=== PATIENT | female | born 1945 | race Caucasian/White ===

== ENCOUNTER → 2016-06-13 08:42 | Day surgery (SDC) | payer MEDICARE, OTHER ==
[~2016-06-13 08:42] MED LIST: Acetaminophen TAB* 325 MG PO PRN; Buffered Lidocaine 1% SYR 3ML* 3 ML/SYR SYRINGE INTRADERM ONE; Cyclopentolate 1% OPTH.SOL* 2 ML BTL ONE; Flurbiprofen 0.03% OPTH.SOL* 2.5 ML BTL ONE; Lidocaine 1% MPF* 2 ML VIAL ONE; Midazolam* 1 MG/ML 2 ML VIAL (2 MG) ONE; Neomycin/Polymy/Dex OPHTH.OIN* 3.5 GM ONE; Phenylephrine 2.5% OPTH.SOL* 2 ML BTL ONE; Tetracaine 0.5% OPTH.SOL 4 ML* 1 DROP BTL ONE; Tropicamide 1% OPTH.SOL* BTL ONE
[2016-06-13 11:20] VITALS: BP 122/67
--- NOTE | 2016-06-14 15:09 | OP ---
DATE OF OPERATION: 06/13/16 [facility] DATE OF : 49 SURGEON: Dr. Oneal Salazar. CAFETERIA COOK: None. ANESTHESIOLOGIST: Ayush Whittaker DO ANESTHESIA: Topical with intravenous sedation. PRE-OP DIAGNOSIS: Cataract, left eye. POST-OP DIAGNOSIS: Cataract, left eye. OPERATIVE PROCEDURE: Phacoemulsification and cataract extraction with posterior chamber intraocular lens implant, left eye. COMPLICATIONS: None. BLOOD LOSS: None. DESCRIPTION OF PROCEDURE: The patient was brought to the operating room and received a small amount of intravenous sedation. A drop of Tetracaine was placed in her left eye. She was prepped and draped in the usual sterile fashion for ophthalmic surgery and attention was directed to the left eye where a speculum was placed. A paracentesis was created at the 5 o'clock position and 0.1 cc of 1 percent preservative-free Lidocaine was injected into the anterior chamber followed by DisCoVisc. The eye was digitally stabilized while a 2.75 mm keratome was used to create a triplanar clear corneal incision at the 3 o'clock position. A continuous curvilinear capsulorrhexis was created with a cystotome and Utrata forceps. BSS on a cannula was used to hydrodissect the lens from the capsule. Phacoemulsification was performed in a divide-and- conquer technique to create four fragments which were removed. Residual cortical material was removed with irrigation and aspiration. DisCoVisc was used to inflate the capsular bag and an SN60AT 17.5 diopter lens was folded and inserted into the capsular bag. DisCoVisc was removed using irrigation and aspiration. BSS on a cannula was used to hydrate the corneal stroma and seal the wound. At the end of the case the pupil was round and the lens was centered. The eye was of normal pressure and the wound was water tight. The speculum was removed and topical Maxitrol ointment was placed on the surface of the eye. The eye was closed, patched and shielded and the patient was sent to the recovery room in stable condition with post operative instructions and follow-up appointment given. [id number] #: [id number] MTDD
== END | disposition home or self-care (01) ==
LOC: OREAST 08:42
PROVIDERS: ATTEND Ophthalmology
DX: H25.812 Combined forms of age-related cataract, left eye (principal)
CPT/HCPCS: A9270-GY; J2250; V2632

== ENCOUNTER 2016-06-27 08:03 | Day surgery (SDC) | payer MEDICARE, OTHER ==
[~2016-06-27 08:03] MED LIST changes: -Acetaminophen TAB* 325 MG PO PRN; -Cyclopentolate 1% OPTH.SOL* 2 ML BTL ONE; -Flurbiprofen 0.03% OPTH.SOL* 2.5 ML BTL ONE; -Lidocaine 1% MPF* 2 ML VIAL ONE; -Midazolam* 1 MG/ML 2 ML VIAL (2 MG) ONE; -Neomycin/Polymy/Dex OPHTH.OIN* 3.5 GM ONE; -Phenylephrine 2.5% OPTH.SOL* 2 ML BTL ONE; -Tetracaine 0.5% OPTH.SOL 4 ML* 1 DROP BTL ONE; -Tropicamide 1% OPTH.SOL* BTL ONE
[2016-06-27] MEDS ORDERED: Midazolam* 1 MG/ML 2 ML VIAL (2 MG) ONE (09:16)
[2016-06-27] MEDS ORDERED: fentaNYL* 50 MCG/ML 2 ML VIAL (100 MCG VIAL) ONE (09:16)
[2016-06-27] MEDS ORDERED: Cyclopentolate 1% OPTH.SOL* 2 ML BTL ONE (10:11)
[2016-06-27] MEDS ORDERED: Lidocaine 1% MPF* 2 ML VIAL ONE (10:11)
[2016-06-27] MEDS ORDERED: Tropicamide 1% OPTH.SOL* BTL ONE (10:11)
[2016-06-27] MEDS ORDERED: Tetracaine 0.5% OPTH.SOL 4 ML* 1 DROP BTL ONE (10:11)
[2016-06-27] MEDS ORDERED: Phenylephrine 2.5% OPTH.SOL* 2 ML BTL ONE (10:11)
[2016-06-27] MEDS ORDERED: Neomycin/Polymy/Dex OPHTH.OIN* 3.5 GM ONE (10:11)
[2016-06-27] MEDS ORDERED: Flurbiprofen 0.03% OPTH.SOL* 2.5 ML BTL ONE (10:11)
[2016-06-27 20:21] VITALS: BP 110/58
--- NOTE | 2016-06-28 00:45 | OP ---
DATE OF OPERATION: 06/27/16 [facility] DATE OF : 49 SURGEON: Dr. Oneal Salazar. COMM[employer] MENT[employer] HE[employer] WORKER: None. ANESTHESIOLOGIST: Ayush Whittaker DO ANESTHESIA: Topical with intravenous sedation. PRE-OP DIAGNOSIS: Cataract, right eye. POST-OP DIAGNOSIS: Cataract, right eye. OPERATIVE PROCEDURE: Phacoemulsification and cataract extraction with posterior chamber intraocular lens implant, right eye. COMPLICATIONS: None. BLOOD LOSS: None. DESCRIPTION OF PROCEDURE: The patient was brought to the operating room and received a small amount of intra-venous sedation. A drop of Tetracaine was placed in her right eye. She was prepped and draped in the usual sterile fashion for ophthalmic surgery and attention was directed to the right eye where a speculum was placed. A paracentesis was created at the 11 o'clock position and 0.1 cc of 1 percent preservative-free Lidocaine was injected into the anterior chamber followed by DisCoVisc. The eye was digitally stabilized while a 2.75 mm keratome was used to create a triplanar clear corneal incision at the 9 o'clock position. A continuous curvilinear capsulorrhexis was created with a cystotome and Utrata forceps. BSS on a cannula was used to hydrodissect the lens from the capsule. Phacoemulsification was performed in a divide-and- conquer technique to create four fragments which were removed. Residual cortical material was removed with irrigation and aspiration. DisCoVisc was used to inflate the capsular bag and an SN60AT 17.5 diopter lens was folded and inserted into the capsular bag. DisCoVisc was removed using irrigation and aspiration. BSS on a cannula was used to hydrate the corneal stroma and seal the wound. At the end of the case the pupil was round and the lens was centered. The eye was of normal pressure and the wound was water tight. The speculum was removed and topical Maxitrol ointment was placed on the surface of the eye. The eye was closed, patched and shielded and the patient was sent to the recovery room in stable condition with post operative instructions and follow-up appointment given. [id number] #: [id number] MTDD
== END 2016-06-27 10:00 | disposition home or self-care (01) ==
LOC: OREAST 08:03
PROVIDERS: ATTEND Ophthalmology
DX: H25.811 Combined forms of age-related cataract, right eye (principal)
CPT/HCPCS: A9270-GY; J2250; J3010; V2632

== ENCOUNTER 2017-11-29 09:44 | Emergency (ER) | payer MEDICARE, OTHER ==
--- OUTSIDE RECORDS SUMMARY | 2017-11-29 09:52 | XMS REPORT ---
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 PayID: [id number] [place] [address] Problems Date Description Provider Status Onset: 03/10/2011 Obesity Savannah Morrison M.D. Active Onset: 03/10/2011 Osteochondropathy Savannah Morrison M.D. Active Onset: 03/27/2011 Vitamin D deficiency Savannah Morrison M.D. Active Onset: 03/27/2011 Impetigo Savannah Morrison M.D. Active Onset: 10/02/2011 Mild recurrent major depression Savannah Morrison M.D. Active Onset: 11/02/2016 Iron deficiency anemia secondary to Bhavna Mart M.D. Active inadequate dietary iron intake Onset: 11/08/2017 Bariatric surgery status Bhavna Mart M.D. Active Onset: 11/08/2017 Adjustment disorder with depressed Bhavna Mart M.D. Active mood Onset: 11/08/2017 Overweight Bhavna Mart M.D. Active Family History Date Family Member(s) Problem(s) Comments General Diabetes Mellitus, II and brother. General no fam hx breast cancer, no colon cancer Father due to Lung () - 67. Cancer Smoker. : (age 82 Mother due to CAD with first DC. Years) First Son healthy. lives in [place] First Daughter healthy. lives in [place] Number of Siblings Siblings: 4 sisters and 5 brothers. First Sister Diabetes Mellitus, II younger sister. First Sister obesity Second Sister obesity Third Sister age 67, oldest sister, dt heart problems. 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 Current doing [employer]. Seat Belt/Car Seat Always uses a seat belt Smoke Alarms There are smoke alarms in the house Allergies, Adverse Reactions, Alerts Date Description Reaction Status Severity Comments 03/27/2011 NKDA active Medications Medication Date Status Form Strength Qnty SIG Indications Ordering Provider Sertraline 12/17/ Active Tablets 50mg 90tab take 1 Bhavna MEDAOWS 2013 s tablet Brittny, daily M.D. Citracal 03/27/ Active Tablets 200-250mg 2 po daily Savannah Breaux/Venkata 2011 -Unit [place] in [place] M.DTamir Vitamin B-12 / Active Tablets ER 1000mcg Unknown 0000 Flintstones / Active Chewtabs 60mg 2 po daily Unknown Complete 0000 Zostavax 11/02/ Hx Suspension 80730Kmf/ inject subq Z00.00 Bhavna Colmenares 2017 - Rec 0.65ML Brittny, 11/08/ M.DTamir 2018 Keflex 03/14/ Hx Capsules 500mg 21cap 1 po tid Darinel Johns 2012 - s [place], 04/03/ M.DTamir 2012 Naprosyn 03/14/ Hx Tablets 375mg 14tab 1 po bid Darinel Johns 2013 - s with meals Ramon, 04/03/ MTamirD. 2012 Mupirocin 03/27/ Hx Ointment 2% 22gm apply to 684 Savannah Monique. 2010 - affected Prince, 10/01/ area qid M.DTamir 2011 Vitamin D3 11/28/ Hx 2000Unit 90uni 1 po qd 268.9 Savannah Monique. 2010 - ts Prince, 03/27/ M.D. 2010 Physical 07/11/ Hx left 726.19 Savannah Monique. Therapy 2010 - shoulder Pricne, 11/28/ Ayo cano 2010 assess and treat Vitamin D3 2000Unit 90uni 1 po qd 268.9 Savannah Monique. 2010 - ts Prince, 11/28/ MTamirDTamir 2010 Zoloft 08/13/ Hx Tablets 50mg 90tab 1 po qd Bhavna Colmenares 2008 - s Brittny, 12/17/ M.D. 2013 Fosteum 08/13/ Hx Capsules 1 PO Q hs Family 2008 - Medicine 07/04/ [facility] Women's One 08/13/ Hx Tablets Family Daily 2008 - Medicine 03/27/ [facility] Vitamin D 08/13/ Hx Tablets 1000Unit 60tab 1 po qd Family 2008 - s Medicine 03/27/ [facility] Work Excuse unable to Som Waldron 2008 - work [employer], 07/04/ 08/11-08/14 M.DTamir 2010 due to illness Return To PT has been Sarah Work 2007 - cleared and [place]oldan, 11/13/ august return [employer]np-C 2007 to work 11/12/07 at full duty Trimethoprim/ 11/04/ Hx Tablets 160-800 20tab bid [facility] Sulfamethoxaz 2007 - s Medicine ole DS 11/14/ [facility] Mupirocin 11/04/ Hx Ointment 2% 22gm Apply Tid Family 2007 - Medicine 08/13/ [facility] 2009 [facility] Entex Pse 07/01/ Hx Tablets ER 120-600 20tab 1 tab po q Lena 2008 - 12HR s 12 hours [facility], 07/11/ prn Afnp-C 2008 Note 07/01/ Hx seen here, Lena 2008 - advised off [facility], 07/04/ work [employer]np-C 2007 through 07/04/07--gauri l return 07/05/07 Tamiflu 07/01/ Hx Capsules 75mg 10cap 1 bid for 5 Lena 2007 - s days sdorf, 07/06/ Afnp-C 2008 Amoxicillin 05/04/ Hx Capsules 250mg 30cap 1 PO tid Darinel Johns 2004 - s Bre[place], 07/01/ M.D. 2008 Robitussin ac 05/04/ Hx 6FL 1 tsp po Darinel Johns 2004 - q4h prn Ramon, 07/01/ M.D. 2008 Penicillin VK 08/30/ Hx 5Oomg 20uni 1 PO bid X Sarah 2002 - ts 10 Days Roldan, 09/09/ Afnp-C 2002 Robitussin ac 07/01/ Hx 4Oz 1-2 tsp po Lena 2002 - q4h prn Zelalem, 07/15/ Afnp-C 2008 Duratuss 07/01/ Hx 20uni 1 PO bid Mak Johns 2003 - ts prn Head Basil, 07/11/ Congestion M.D. 2003 Tessalon 07/01/ Hx 100mg 30uni 1-2 PO tid Mak Claire 2002 - ts Finver, 07/11/ M.D. 2003 Estraderm 03/30/ Hx as Dir Family 2002 - Medicine 07/01/ [facility] Zoloft 07/01/ Hx 50mg 1 PO qd Family 2001 - Medicine 07/01/ [facility] Amoxicillin 09/13/ Hx 250mg 30uni 1 PO tid Victorino Mccann 1998 - [place]um[place], 09/23/ M.D. 1998 Naproxen 03/05/ Hx 375mg Tab 50uni 1 tid For Victorino Mccann 1997 - One Week Blumkin, 03/25/ Then tid M.D. 1997 prn Amoxicillin 07/30/ Hx 250mg 30uni 1 PO tid Victorino Mccann 1997 - [place], 08/09/ M.D. 1997 Premarin 05/28/ Hx 0.9mg 30uni 1 PO qd Victorino Mccann 1997 - [place], 03/30/ M.D. 2001 Alendronate / Hx Tablets 70mg 4tabs take 1 Unknown Sodium 0000 - tablet by every 2011 week Immunizations CPT Code Status Date Vaccine Lot # [id number] Given 05/29/2016 Tdap Tetanus, W Pertussis [id number] Given 02/15/2016 Influenza Vac, Quadrivalent, Slit Virus, Im [id number] 08234 Given 07/22/2015 Pneumococcal Immunization [id number] 78310 Given 02/18/2015 Influenza Vac, Quadrivalent, Slit Virus, Im [id number] 23092 Given 04/03/2013 Pneumococcal Conjugate Vacc-13 [id number] 89722 Given 04/03/2013 Preservative free flu 3 yrs+ and older [id number] 80829 Given 03/28/2012 DO Not Use Split Influenza Virus Vaccine [id number] 05359 Given 02/13/2011 DO Not Use Split Influenza Virus Vaccine [id number] 91760 Given 02/09/2011 DO Not Use Split Influenza Virus Vaccine Vital Signs Date Vital Result Comment 11/08/2017 BP Systolic 120 mmHg BP Diastolic 80 mmHg Heart Rate 72 /min Body Temperature 97.8 F Respiratory Rate 18 /min Height 62.5 inches 5'2.50" Weight 174.00 lb BMI (Body Mass Index) 31.3 kg/m2 11/02/2016 BP Systolic 110 mmHg BP Diastolic 80 mmHg Heart Rate 64 /min Body Temperature 98.0 F Respiratory Rate 18 /min Height 63 inches 5'3" Weight 179.00 lb BMI (Body Mass Index) 31.7 kg/m2 05/29/2016 BP Systolic 118 mmHg BP Diastolic 66 mmHg Heart Rate 66 /min Body Temperature 97.9 F Respiratory Rate 16 /min Height 62 inches 5'2" Weight 178.38 lb BMI (Body Mass Index) 32.6 kg/m2 02/15/2016 BP Systolic 116 mmHg BP Diastolic 74 mmHg Heart Rate 66 /min Body Temperature 98.1 F Height 62 inches 5'2" Weight 180.12 lb BMI (Body Mass Index) 32.9 kg/m2 11/11/2015 BP Systolic 110 mmHg BP Diastolic 70 mmHg Heart Rate 68 /min Body Temperature 98.2 F Respiratory Rate 18 /min Weight 178.00 lb 08/12/2015 BP Systolic 100 mmHg BP Diastolic 60 mmHg Heart Rate 72 /min Body Temperature 98.0 F Respiratory Rate 18 /min Weight 176.00 lb 07/22/2015 BP Systolic 100 mmHg BP Diastolic 60 mmHg Heart Rate 64 /min Body Temperature 98.1 F Respiratory Rate 18 /min Height 62 inches 5'2" Weight 177.00 lb BMI (Body Mass Index) 32.4 kg/m2 05/28/2014 BP Systolic 124 mmHg BP Diastolic 74 mmHg Heart Rate 56 /min Body Temperature 98.1 F Respiratory Rate 18 /min Height 62 inches 5'2" Weight 174.00 lb BMI (Body Mass Index) 31.8 kg/m2 04/03/2013 BP Systolic 122 mmHg BP Diastolic 70 mmHg Heart Rate 68 /min Body Temperature 98.2 F Respiratory Rate 18 /min Height 62 inches 5'2" Weight 164.00 lb BMI (Body Mass Index) 30.0 kg/m2 03/14/2013 BP Systolic 110 mmHg BP Diastolic 74 mmHg Heart Rate 68 /min Body Temperature 97.4 F Respiratory Rate 18 /min Height 63 inches 5'3" Weight 157.00 lb BMI (Body Mass Index) 27.8 kg/m2 03/28/2012 BP Systolic 110 mmHg BP Diastolic 70 mmHg Heart Rate 68 /min Body Temperature 98.1 F Height 63 inches 5'3" Weight 152.00 lb BMI (Body Mass Index) 26.9 kg/m2 10/02/2011 BP Systolic 118 mmHg BP Diastolic 72 mmHg Heart Rate 54 /min Body Temperature 97.3 F Height 64 inches 5'4" Weight 163.00 lb BMI (Body Mass Index) 28.0 kg/m2 03/27/2011 BP Systolic 106 mmHg BP Diastolic 72 mmHg Heart Rate 62 /min Body Temperature 97.5 F Height 64 inches 5'4" Weight 206.00 lb BMI (Body Mass Index) 35.4 kg/m2 Right Visual Acuity Distance 20/30 corrected Left Visual Acuity Distance 20/30 corrected 11/28/2010 BP Systolic 115 mmHg BP Diastolic 75 mmHg Heart Rate 68 /min Body Temperature 98.4 F Height 64 inches 5'4" Weight 229.50 lb BMI (Body Mass Index) 39.4 kg/m2 07/11/2010 BP Systolic 118 mmHg BP Diastolic 70 mmHg Heart Rate 72 /min Respiratory Rate 16 /min Height 64 inches 5'4" Weight 232.00 lb BMI (Body Mass Index) 39.8 kg/m2 07/04/2010 BP Systolic 110 mmHg BP Diastolic 70 mmHg Heart Rate 68 /min Body Temperature 98.5 F Respiratory Rate 15 /min Height 64 inches 5'4" Weight 228.00 lb BMI (Body Mass Index) 39.1 kg/m2 01/29/2009 BP Systolic 120 mmHg BP Diastolic 70 mmHg Heart Rate 68 /min Respiratory Rate 16 /min 08/13/2008 BP Systolic 116 mmHg BP Diastolic 72 mmHg Heart Rate 84 /min Body Temperature 99.0 F Height 64 inches 5'4" Weight 221.00 lb BMI (Body Mass Index) 37.9 kg/m2 11/11/2007 BP Systolic 122 mmHg BP Diastolic 82 mmHg Heart Rate 80 /min Body Temperature 98.8 F Weight 213.00 lb 11/06/2007 BP Systolic 136 mmHg BP Diastolic 80 mmHg Heart Rate 80 /min Body Temperature 99.0 F Weight 213.00 lb 07/02/2007 BP Systolic 130 mmHg BP Diastolic 70 mmHg Heart Rate 84 /min Body Temperature 101.1 F Weight 215.00 lb 05/04/2003 BP Systolic 108 mmHg BP Diastolic 60 mmHg Heart Rate 72 /min Body Temperature 97.0 F Weight 215.00 lb 08/30/2002 BP Systolic 126 mmHg BP Diastolic 82 mmHg Heart Rate 80 /min Body Temperature 98.1 F Weight 223.00 lb 07/01/2002 BP Systolic 108 mmHg BP Diastolic 70 mmHg Body Temperature 98.2 F Weight 223.00 lb 09/13/1998 Body Temperature 97.5 F Oral Weight 207.00 lb 03/05/1998 Body Temperature 97.5 F Weight 202.00 lb 07/30/1997 Body Temperature 97.2 F Results Test Date Test Result H/L Range Note Ua - Non Micro (a) 03/02/2017 Appearance yellow Color clear Glucose neg Bilirubin neg Ketones 15 SP Grav 1.025 Blood neg PH 5.5 Protein neg Urobil 1.0 Nitrite neg Leukocytes (a/[facility]/Centrex) neg Iron And Tibc 11/09/2016 Iron Bind.Cap.(Tibc) 424 g/dL 250-450 1 Uibc 383 g/dL High 118-369 1 Iron, Serum 41 g/dL 27-139 1 Iron Saturation 10 % Low 15-55 1 Laboratory test finding 11/09/2016 TSH 1.61 mIU/L 0.50-6.00 Vitamin D25 18 Low 30-100 Comprehensive Metabolic Prof 11/09/2016 Sodium 141 mEq/L 134-149 Potassium 4.6 mEq/L 3.6-5.5 Chloride 99 mEq/L 94-112 Carbon Dioxide 25 mEq/L 21-32 Glucose 97 mg/dL 70-105 BUN 17 mg/dL 6-26 Creatinine 0.7 mg/dL 0.6-1.4 BUN/Creat Ratio 24.3 CALC 8.0-36.0 Calcium 8.9 mg/dL 8.6-10.2 Total Protein 7.4 g/dL 6.4-8.3 Albumin 4.1 g/dL 3.8-5.5 Globulin 3.3 g/dL 2.0-4.8 A/G Ratio 1.2 CALC 0.6-2.3 Alk. Phosphatase 109 U/L 30-110 Alt (SGPT) 11 U/L 7-35 Ast (Sgot) 18 U/L 5-34 Total Bilirubin 0.6 mg/dL 0.2-1.3 GFR Non- >60 ml/min/1.73m^ >=60 GFR >60 ml/min/1.73m^ >=60 Complete Blood Count 11/09/2016 WBC 6.0 x10^3/UL 3.6-9.6 RBC 4.90 x10^6/UL 3.90-5.70 HGB 12.8 g/dL 12.1-17.2 HCT 39 % 36-50 MCV 80.0 fL Low 82.2-97.4 MCH 26.1 pg Low 27.6-33.3 MCHC 32.7 g/dL Low 33.0-35.5 RDW 15.4 % High 11.6-13.7 PLT 266 x10^3/UL 150-400 MPV 7.2 fL Low 7.4-10.4 Gran # 3.5 x10^3/UL 1.5-7.2 Lymph# 2.2 x10^3/UL 0.7-4.9 Stra[place]ord# 0.3 x10^3/UL 0.1-0.9 Gran % 55.8 % 42.2-75.2 Lymph % 38.1 % 20.5-51.1 [place]% 6.1 % 1.7-9.3 CBC Manual Diff-a 02/15/2016 WBC 6.7 3.6-9.6 2 RBC 4.54 3.90-5.70 2 Hemoglobin (Fma/CMC/CTX) 12.0 g/dL Low 12.1 - 17.2 2 Hematocrit (Fma/CMC/CTX) 36.7 % 36.1 - 50.3 2 Mean Corpuscular Vol 81 Low 82.2-97.4 2 Mean Corpuscular Hemoglobin 26.5 Low 27.6-33.3 2 Mean Corpuscular Hemo Concen 32.8 32.0-36.0 2 Platelets 237 10^3/ul 150-400 2 RDW 14.7 High 11.6-13.7 2 Mean Platelet Volume 6.9 5.5-11.0 2 Neutrophil 46 2 Band 4 2 Lymphocytes 34 2 Monocyte 7 2 Eosinophils 7 2 Anisocytosis (Fma/CMC/Centrex) slight 2 Z#Comment see comment 2 Complete Blood Count 11/11/2015 WBC 7.5 x10^3/UL 3.6-9.6 RBC 4.81 x10^6/UL 3.90-5.70 HGB 13.0 g/dL 12.1-17.2 HCT 40 % 36-50 MCV 82.0 fL Low 82.2-97.4 3 MCH 27.0 pg Low 27.6-33.3 4 MCHC 32.9 g/dL Low 33.0-35.5 5 RDW 14.3 % High 11.6-13.7 PLT 282 x10^3/UL 150-400 MPV 7.4 fL 7.4-10.4 Gran # 4.4 x10^3/UL 1.5-7.2 Lymph# 2.8 x10^3/UL 0.7-4.9 [place]# 0.3 x10^3/UL 0.1-0.9 Gran % 57.9 % 42.2-75.2 Lymph % 37.3 % 20.5-51.1 [place]% 4.8 % 1.7-9.3 Iron And Tibc 11/11/2015 Iron Bind.Cap.(Tibc) 467 g/dL High 250-450 6 Uibc 422 g/dL High 118-369 6 Iron, Serum 45 g/dL 27-139 6 Iron Saturation 10 % Low 15-55 6 Lipid Profile 07/26/2015 Cholesterol 199 mg/dL 120-200 Triglycerides 111 mg/dL 30-200 HDL Cholesterol 54 mg/dL 30-85 LDL (Calculated) 123 CALC 0-129 VLDL Cholesterol 22 mg/dL 0-50 HDL Risk Factor 3.7 CALC 0.0-4.4 Laboratory test finding 07/26/2015 Ferritin 6 ng/mL Low 15-200 7 TSH 1.12 mIU/L 0.50-6.00 Free T4 1.11 ng/dL 0.75-1.54 Comp Metabolic Panel 02/22/2015 Sodium 138 mmol/L 133-145 Potassium 4.2 mmol/L 3.5-5.0 Chloride 102 mmol/L 101-111 Co2 Carbon Dioxide 31 mmol/L 22-32 Anion Gap 5 mmol/L 2-11 Glucose 58 mg/dL Low 70-100 Blood Urea Nitrogen 18 mg/dL 6-24 Creatinine 0.73 mg/dL 0.51-0.95 BUN/Creatinine Ratio 24.7 High 8-20 Calcium 9.2 mg/dL 8.6-10.3 Total Protein 7.0 g/dL 6.4-8.9 Albumin 3.9 g/dL 3.2-5.2 Globulin 3.1 g/dL 2-4 Albumin/Globulin Ratio 1.3 1-3 Total Bilirubin 0.50 mg/dL 0.2-1.0 Alkaline Phosphatase 106 U/L High 34-104 Alt 9 U/L 7-52 Ast 15 U/L 13-39 Egfr Non- 79.5 >60 Egfr 102.3 >60 8 Iron & Iron Binding Capacity 02/22/2015 Iron 45 g/dL Low 50-212 Unsaturated Iron Binding 431 g/dL Total Iron Binding Capacity 476 g/dL High 250-450 % Iron Saturation 9 % Low 15-55 Laboratory test finding 02/22/2015 Ferritin 16.2 ng/mL 11-307 Vitamin B12 392 pg/mL 180-914 9 Folic Acid (Folate) > 20.00 ng/mL >3.99 Vitamin D Total 25(Oh) 22.0 ng/mL Low 30-50 CBC Auto Diff 02/22/2015 White Blood Count 5.2 10^3/uL 4.8-10.8 Red Blood Count 5.2 10^6/uL 4.0-5.4 Hemoglobin 12.9 g/dL 12.0-16.0 Hematocrit 41 % 35-47 Mean Corpuscular Volume 86 fL 80-97 Mean Corpuscular Hemoglobin 27 pg 27-31 Mean Corpuscular HGB Conc 32 g/dL 31-36 Red Cell Distribution Width 15 % 10.5-15 Platelet Count 230 10^3/uL 150-450 Mean Platelet Volume 9 um3 7.4-10.4 Abs Neutrophils 2.7 10^3/uL 1.5-7.7 Abs Lymphocytes 1.7 10^3/uL 1.0-4.8 Abs Monocytes 0.4 10^3/uL 0-0.8 Abs Eosinophils 0.3 10^3/uL 0-0.6 Abs Basophils 0.1 10^3/uL 0-0.2 Abs Nucleated RBC 0.01 10^3/uL Granulocyte % 51.4 % 38-83 Lymphocyte % 33.0 % 25-47 Monocyte % 7.7 % 1-9 Eosinophil % 6.1 % High 0-6 Basophil % 1.8 % 0-2 Nucleated Red Blood Cells % 0.1 Laboratory test finding 02/22/2015 Vitamin E Level 8.8 mg/L 5.5 - 17.0 10 Vitamin B1 (Whole Blood) 120 nmol/L 70-180 11 Laboratory test finding 05/28/2014 Cytology RUN DATE: 05/29/ <SEE 12 NOTE> Laboratory test finding 05/28/2014 TSH 1.74 mIU/L 0.50-6.00 Ua - Non Micro (Fma) 05/28/2014 Appearance CLEAR Color YELLOW Glucose, Urine (Fma/CMC/CTX) NEG Bilirubin NEG Ketones NEG SP Grav 1.010 Blood NEG PH 5.5 Protein NEG Urobil 0.2 Nitrite NEG Leukocytes (Fma/CMC/Centrex) NEG CBC Auto Diff 02/06/2014 White Blood Count 5.6 10^3/uL 4.8-10.8 13 Red Blood Count 4.72 10^6/uL 4.0-5.4 13 Hemoglobin 13.3 g/dL 12.0-16.0 13 Hematocrit 39 % 35-47 13 Mean Corpuscular Volume 83 fL 80-97 13 Mean Corpuscular Hemoglobin 28 pg 27-31 13 Mean Corpuscular HGB Conc 34 g/dL 31-36 13 Red Cell Distribution Width 14 % 10.5-15 13 Platelet Count 237 10^3/uL 150-450 13 Mean Platelet Volume 8 um3 7.4-10.4 13 Abs Neutrophils 2.9 10^3/uL 1.5-7.7 13 Abs Lymphocytes 2.1 10^3/uL 1.0-4.8 13 Abs Monocytes 0.4 10^3/uL 0-0.8 13 Abs Eosinophils 0.2 10^3/uL 0-0.6 13 Abs Basophils 0.1 10^3/uL 0-0.2 13 Abs Nucleated RBC 0 10^3/uL 13 Granulocyte % 51.5 % 38-83 13 Lymphocyte % 37.0 % 25-47 13 Monocyte % 6.9 % 1-9 13 Eosinophil % 3.7 % 0-6 13 Basophil % 0.9 % 0-2 13 Nucleated Red Blood Cells % 0 13 Comp Metabolic Panel 02/06/2014 Sodium 136 mmol/L 133-145 13 Potassium 3.9 mmol/L 3.7-5.6 13 Chloride 101 mmol/L 101-111 13 Co2 Carbon Dioxide 32 mmol/L 22-32 13 Anion Gap 3 mmol/L 2-11 13 Glucose 88 mg/dL 70-100 13 Blood Urea Nitrogen 13 mg/dL 6-24 13 Creatinine 0.67 mg/dL 0.51-0.95 13 BUN/Creatinine Ratio 19.4 8-20 13 Calcium 9.2 mg/dL 8.6-10.3 13 Total Protein 7.4 g/dL 6.4-8.9 13 Albumin 3.8 g/dL 3.2-5.2 13 Globulin 3.6 g/dL 2-4 13 Albumin/Globulin Ratio 1.1 1-3 13 Total Bilirubin 0.50 mg/dL 0.2-1.0 13 Alkaline Phosphatase 112 U/L High 34-104 13 Alt 11 U/L 7-52 13 Ast 16 U/L 13-39 13 Egfr Non- 88.1 >60 13 Egfr 113.3 >60 13, 14 Iron & Iron Binding Capacity 02/06/2014 Iron 47 g/dL Low 50-212 13 Unsaturated Iron Binding 411 g/dL 13 Total Iron Binding Capacity 458 g/dL High 250-450 13 % Iron Saturation 10 % Low 15-55 13 Laboratory test finding 02/06/2014 Ferritin 13.6 ng/mL 11-307 13, 15 Vitamin B12 590 pg/mL 180-914 13, 16 Folate > 20.00 ng/mL >3.99 13, 17 Vitamin D, 25 Hydroxy 02/06/2014 25-Hydroxy Vitamin D2 <4.0 ng/mL 13 25-Hydroxy Vitamin D3 33 ng/mL 13 25-Hydroxy Vitamin D Total 33 ng/mL 13, 18 Laboratory test finding 02/06/2014 Vitamin B1 Whole Blood 124 nmol/L 70- 180 13, 19 Vitamin E Level 11.2 mg/L 5.5 - 17.0 13, 20 Ua - Non Micro (Fma) 04/03/2013 Appearance clear Color yellow Glucose - Bilirubin - Ketones - SP Grav 1.020 Blood - PH 6.5 Protein - Urobil 1.0 Nitrite - Leukocytes (Fma/CMC/Centrex) - CBC Auto Diff 02/10/2013 White Blood Count 5.5 10^3/uL 4.8-10.8 Red Blood Count 4.64 10^6/uL 4.0-5.4 Hemoglobin 13.7 g/dL 12.0-16.0 Hematocrit 41 % 35-47 Mean Corpuscular Volume 89 fL 80-97 Mean Corpuscular Hemoglobin 30 pg 27-31 Mean Corpuscular HGB Conc 33 g/dL 31-36 Red Cell Distribution Width 14 % 10.5-15 Platelet Count 200 10^3/uL 150-450 Mean Platelet Volume 9 um3 7.4-10.4 Abs Neutrophils 2.8 10^3/uL 1.5-7.7 Abs Lymphocytes 2.0 10^3/uL 1.0-4.8 Abs Monocytes 0.4 10^3/uL 0-0.8 Abs Eosinophils 0.2 10^3/uL 0-0.6 Abs Basophils 0.1 10^3/uL 0-0.2 Abs Nucleated RBC 0.01 10^3/uL Granulocyte % 50.6 % 38-83 Lymphocyte % 37.0 % 25-47 Monocyte % 7.0 % 1-9 Eosinophil % 4.0 % 0-6 Basophil % 1.4 % 0-2 Nucleated Red Blood Cells % 0.1 Comp Metabolic Panel 02/10/2013 Sodium 140 mmol/L 133-145 Potassium 4.2 mmol/L 3.5-5.0 Chloride 107 mmol/L 101-111 Co2 Carbon Dioxide 31.0 mmol/L 22-32 Anion Gap 2.0 mmol/L 2-11 Glucose 92 mg/dL 70-100 Blood Urea Nitrogen 14 mg/dL 6-24 Creatinine 0.70 mg/dL 0.50-1.40 BUN/Creatinine Ratio 20.0 8-20 Calcium 9.3 mg/dL 8.1-9.9 Total Protein 6.7 g/dL 6.2-8.1 Albumin 3.6 g/dL 3.2-5.2 Globulin 3.1 g/dL 2-4 Albumin/Globulin Ratio 1.2 1-3 Total Bilirubin 0.8 mg/dL 0.4-1.5 Alkaline Phosphatase 122 U/L High 30-110 Alt 15 U/L 14-54 Ast 20 U/L 12-42 Egfr Non- 84.0 >60 Egfr 108.0 >60 21 Iron & Iron Binding Capacity 02/10/2013 Iron 63 g/dL 28-170 Unsaturated Iron Binding 383 g/dL Total Iron Binding Capacity 446 g/dL 250-450 % Iron Saturation 14 % Low 15-55 Laboratory test finding 02/10/2013 Vitamin B12 659 pg/mL 180-914 22 Folate > 24.8 ng/mL High 2-16 23 Vitamin B1 Whole Blood 174 nmol/L 70-180 24 Vitamin E Level 11.6 mg/L 5.5 - 17.0 25 Surgical Pathology 10/17/2012 S RUN DATE: 10/21/ <SEE NOTE> 26 Ua - Non Micro (Fma) 03/28/2012 Appearance clear Color yellow Glucose - Bilirubin - Ketones trace SP Grav 1.025 Blood - PH 5.5 Protein - Urobil 0.2 Nitrite - Leukocytes (Fma/CMC/Centrex) - Laboratory 01/29/2012 [facility] cbc,comp,fe/tibc,ferr,transferrin,b12,fol test finding Test Laboratory 08/28/2011 [facility] Lab comp,fe/tibc,ferr,b12,folate,cbc test finding Test Basic 02/23/2011 Sodium 136 mmol/L 135 27 Metabolic -14 Panel 5 Potassium 4.4 mmol/L 3.5-5.0 27 Chloride 99 mmol/L Low 101-111 27 Co2 (Carbon Dioxide) 30.0 mmol/L 22-32 27 Anion Gap 7.0 mmol/L 2-11 27, 28 Glucose 84 mg/dL 70-100 27 BUN 20 mg/dL 6-24 27 Creatinine 0.7 mg/dL 0.50-1.40 27 One Over Creatinine 1.42 27 BUN/Creatinine Ratio 28.6 High 8-20 27 Calcium 9.8 mg/dL 8.1-9.9 27 eGFR Non- 84.5 > 60 27 eGFR 108.7 > 60 27, 29 CBC Auto Diff 02/23/2011 White Blood Count 8.8 CUMM 4.8-10.8 27 Red Cell Count 5.05 CUMM 4.2-5.4 27 Hemoglobin 14.0 g/dL 12.0-16.0 27 Hematocrit 42 % 35-47 27 Mean Corpuscular Volume 83 um3 79-97 27 Mean Corpuscular Hemoglob 28 pg 27-31 27 Mean Corpuscular HGB Cone 34 g/dL 32-36 27 Redcell Distribution WDTH 16 % High 10.5-15 27 Platelet Count 279 CUMM 150-450 27 Mean Platelet Volume 9.1 um3 7.4-10.4 27, 30 Manual Differential 02/23/2011 Polysegmented Neutrophil 58 % 38-83 27 Lymphocyte 31 % 25-47 27 Monocyte 9 % 0-13 27 Eosinophil 1 % 0-6 27 Basophil 1 % 0-2 27 Absolute Neutrophil Count 5.1 27 Anisocytosis SLIGHT 27 Lipid Profile 08/02/2010 Cholesterol 194 mg/dL 120-200 HDL 51 mg/dL 30-85 Triglycerides 106 mg/dL 30-200 HDL Risk Factor 3.8 CALC 0.0-4.0 LDL (Calculated) 122 CALC 0-129 VLDL (Calculated) 21 mg/dL 0-50 Laboratory test finding 08/02/2010 Hemoglobin A1c 5.8 % High 4.1-5.7 (Fma/CMC,CX) CBC Auto Diff 07/29/2010 White Blood Count 10.4 CUMM 4.8-10.8 Red Cell Count 4.88 CUMM 4.2-5.4 Hemoglobin 13.7 g/dL 12.0-16.0 Hematocrit 41 % 35-47 Mean Corpuscular Volume 85 um3 79-97 Mean Corpuscular Hemoglob 28 pg 27-31 Mean Corpuscular HGB Cone 33 g/dL 32-36 Redcell Distribution WDTH 15 % 10.5-15 Platelet Count 269 CUMM 150-450 Mean Platelet Volume 9.4 um3 7.4-10.4 Gran % 64.5 % 38-83 Lymph % 25.2 % 25-47 Mononuclear % 7.8 % 1-9 Eosinophil % 1.9 % 0-6 Basophil % 0.6 % 0-2 Abs Lymphs 2.6 1.0-4.8 Abs Mononuclear 0.8 0-0.8 Absolute Neutrophil Count 6.7 1.5-7.7 Abs Eosinophils 0.2 0-0.6 Abs Basophils 0.1 0-0.2 Comp Metabolic Panel 07/29/2010 Sodium 136 mmol/L 135-145 Potassium 4.0 mmol/L 3.5-5.0 Chloride 100 mmol/L Low 101-111 Co2 (Carbon Dioxide) 31.0 mmol/L 22-32 Anion Gap 5.0 mmol/L 2-11 31 Glucose 68 mg/dL Low 70-100 BUN 17 mg/dL 6-24 Creatinine 0.70 mg/dL 0.50-1.40 One Over Creatinine 1.40 BUN/Creatinine Ratio 24.3 High 8-20 Calcium 9.4 mg/dL 8.1-9.9 Total Protein 7.6 GM/DL 6.2-8.1 Albumin 3.5 GM/DL 3.2-5.2 Globulin 4.1 GM/DL High 2-4 Albumin/Globulin Ratio 0.9 Low 1-3 Bilirubin Total 0.6 mg/dL 0.4-1.5 32 Alkaline Phosphatase 87 U/L 30-110 Alt (SGPT) 17 U/L 14-54 Ast (Sgot) 19 U/L 12-42 eGFR Non- 84.5 > 60 eGFR 108.7 > 60 33 Iron & Iron Binding Capacity 07/29/2010 Iron Total 69 g/dL 28-170 Unsaturated Iron Binding 333 g/dL Total Iron Binding Capacity 402 g/dL 250-450 % Iron Saturation 17 % 15-55 Laboratory test finding 07/29/2010 Ferritin 47 NG/ML 11.0-307 Vitamin B12 453 pg/mL 180-914 Folic Acid > 20.0 NG/ML High 2-16 TSH 1.04 MIU/ML 0.34-5.60 Cortisol 5.3 g/dL 34 Vitamin D, 25 Hydroxy 07/29/2010 25-Hydroxy Vitamin D2 <4.0 ng/mL () 25-Hydroxy Vitamin D3 35 ng/mL () 25-Hydroxy Vitamin D Total 35 ng/mL () 35 Laboratory test finding 07/29/2010 Vitamin B1 Whole Blood 141 nmol/L 80- 150 36 Vitamin E 12.1 mg/L 5.5-17.0 37 Laboratory test finding 07/04/2010 Vitamin D, 25 Oh 37.1 ng/mL 32.0- 100.0 38 Comprehensive Metabolic Prof 07/04/2010 Albumin 4.7 g/dL 3.8-5.5 Alk. Phos. 92 U/L 30-110 Alt (SGPT) 18 U/L 7-35 Ast (Sgot) 20 U/L 5-34 BUN 18 mg/dL 6-26 Calcium 10.2 mg/dL 8.6-10.2 Chloride 99 mEq/L 94-112 Creatinine 0.8 mg/dL 0.6-1.4 Carbon Dioxide 28 mEq/L 21-32 Glucose 113 mg/dL High 70-105 39 Sodium 144 mEq/L 134-149 Total Bilirubin 0.6 mg/dL 0.2-1.3 Total Protein 8.4 g/dL High 6.3-8.1 40 Potassium 5.1 mEq/L 3.6-5.5 Globulin 3.7 g/dL 2.0-4.8 A/G Ratio 1.3 Calc 0.6-2.2 BUN/Creat Ratio 22.2 Calc 8.0-36.0 Laboratory test finding 07/04/2010 TSH 1.85 mIU/L 0.50-6.00 CBC With Manual Diff 01/29/2009 White Blood Count 8.9 CUMM 4.8-10.8 Red Cell Count 4.72 CUMM 4.2-5.4 Hemoglobin 13.4 g/dL 12.0-16.0 Hematocrit 41 % 35-47 Mean Corpuscular Volume 87 um3 79-97 Mean Corpuscular Hemoglob 28 pg 27-31 Mean Corpuscular HGB Cone 33 g/dL 32-36 Redcell Distribution WDTH 15 % 10.5-15 Platelet Count 239 CUMM 150-450 Mean Platelet Volume 9.1 um3 7.4-10.4 Polysegmented Neutrophil 57 % 38-83 Lymphocyte 33 % 25-47 Monocyte 5 % 0-13 Eosenophil 4 % 0-6 Basophil 1 % 0-2 Absolute Neutrophil Count 5.0 RBC Morphology NORMAL Liver Function Panel 01/29/2009 Total Protein 7.1 GM/DL 6.2-8.1 Albumin 3.8 GM/DL 3.2-5.2 Globulin 3.3 GM/DL 2-4 Albumin/Globulin Ratio 1.2 1-3 Bilirubin Total 0.8 mg/dL 0.4-1.5 41 Bilirubin Direct 0.1 mg/dL 0.1-0.5 Indirect Bilirubin 0.7 mg/dL 0.1-0.75 Alkaline Phosphatase 98 U/L 30-110 Alt (SGPT) 20 U/L 14-54 Ast (Sgot) 24 U/L 12-42 Laboratory test finding 01/29/2009 PTT (Aptt) 33.2 25.15-38.53 42 Protime 01/29/2009 Inr 1.00 0.86-1.13 43 Protime 12.2 SEC 10.7-13.6 44 Basic Metabolic Panel 10/28/2007 Sodium 142 mmol/L 135-145 45 Potassium 4.3 mmol/L 3.5-5.0 45 Chloride 106 mmol/L 101-111 45 Co2 (Carbon Dioxide) 31.7 mmol/L 22-32 45 Anion Gap 4.3 mmol/L 2-11 45, 46 Glucose 89 mg/dL 70-105 45 BUN 21 mg/dL 6-24 45 Creatinine 0.67 mg/dL 0.5-1.4 45 One Over Creatinine 1.40 45 BUN/Creatinine Ratio 31.3 High 8-20 45 Calcium 9.2 mg/dL 8.1-9.9 45, 47 Surgical Pathology 10/10/2007 Surgical Pathology <SEE 48 NOTE> Laboratory test 07/02/2007 Flu A&B POSITIVE Negative finding Laboratory test 08/30/2002 Quickstrep POSITIVE Negative finding 1 1 sst 2 platelets appear normal on smear few ovalocytes 3 RESULTS VERIFIED BY REPEAT ANALYSIS 4 RESULTS VERIFIED BY REPEAT ANALYSIS 5 RESULTS VERIFIED BY REPEAT ANALYSIS 6 1 sst 7 RESULTS VERIFIED BY REPEAT ANALYSIS 8 Because ethnic data is not always readily available, this report includes an eGFR for both -Americans and non- Americans. The National Kidney Disease Education Program (NKDEP) does not endorse the use of the MDRD equation for patients that are not between the ages of 18 and 70, are , have extremes of body size, muscle mass, or nutritional status, or are non- or non-. According to the National Kidney Foundation, irrespective of diagnosis, the stage of the disease is based on the level of kidney function: Stage Description GFR(mL/min/1.73 m(2)) 1 Kidney damage with normal or decreased GFR 90 2 Kidney damage with mild decrease in GFR 60-89 3 Moderate decrease in GFR 30-59 4 Severe decrease in GFR 15-29 5 Kidney failure <15 (or dialysis) 9 Normal Range 180 to 914 Indeterminate Range 145 to 180 Deficient Range <145 10 Test Performed by: [employer] [address] [address] Vacuum Frame Operator: Gay Louis, Ph.D. 11 Test Performed by: [facility] [place] [address] Vacuum Frame Operator: Gay Louis, Ph.D. 12 RUN DATE: 05/29/14 [facility] LAB LIVE PAGE 1 RUN TIME: [address] [place] [address] Specimen Inquiry Name: SAVANNAH KO I : [address]: Bhavna Mart MD Acct: [id number] Unit: [id number] AGE: 69 Location: [facility] Re05/28/14 SEX: F Status: REG REF SPEC: [id number] AUBREE: 05/28/[address]: Bhavna Mart MD REQ: [id number] RECD: 05/28/142266 STATUS: SOUT _ ORDERED: IMAGE ANALYSIS FINAL DIAGNOSIS Negative for Intraepithelial lesion or Malignancy A. Ectocervical/Endocervical Specimen Adequacy: Satisfactory of evaluation Transformation zone component not identified Patient Information: HPV: Thin Layer Pap Test w/reflex to high risk HPV RNA testing when ASCUS Actual Specimen Date: 05/28/14 Date of Last Specimen: 03/27/11 ?: N Post Menopausal?: Y Hysterectomy?: N Previous Abnormal Pap Smears?:N Signed (signature on file) Ewa Soni CT (ASCP) 05/29/14 1339 This Pap test was evaluated with the assistance of the [employer] Test Imaging System. Due to cytologic findings at the carpet weaver microscope, comprehensive manual rescreening by a Lot Attendant may be required. The Pap Smear is a screening test designed to aid in the detection of premalignant and malignant conditions of the uterine cervix. It is not a diagnostic procedure and should not be used as the sole means of detecting cervical cancer. Both false- positive and false- negative reports do occur. Depending on your risk status, a Pap smear should be obtained and evaluated every 1-3 years. END OF REPORT * ML=Testing performed at Main Lab DEPARTMENT OF PATHOLOGY, [address] [place] [address] Victorino Ford M.D. Director [facility] # [id number] 13 14 Because ethnic data is not always readily available, this report includes an eGFR for both -Americans and non- Americans. The National Kidney Disease Education Program (NKDEP) does not endorse the use of the MDRD equation for patients that are not between the ages of 18 and 70, are , have extremes of body size, muscle mass, or nutritional status, or are non- or non-. According to the National Kidney Foundation, irrespective of diagnosis, the stage of the disease is based on the level of kidney function: Stage Description GFR(mL/min/1.73 m(2)) 1 Kidney damage with normal or decreased GFR 90 2 Kidney damage with mild decrease in GFR 60-89 3 Moderate decrease in GFR 30-59 4 Severe decrease in GFR 15-29 5 Kidney failure <15 (or dialysis) 15 FASTING 16 Normal Range 180 to 914 Indeterminate Range 145 to 180 Deficient Range <145 17 FASTING 18 REFERENCE VALUE 25-HYDROXY D TOTAL (D2+D3) Optimum levels in the healthy population are 20-50, patients with bone disease may benefit from higher levels within this range. Test Performed by: [place] [address] Vacuum Frame Operator: Preston Man M.D. 19 Test Performed by: [place] [address] Vacuum Frame Operator: Gay Dillon, Ph.D. 20 Test Performed by: [place] [address] Vacuum Frame Operator: Gay Dillon, Ph.D. 21 Because ethnic data is not always readily available, this report includes an eGFR for both -Americans and non- Americans. The National Kidney Disease Education Program (NKDEP) does not endorse the use of the MDRD equation for patients that are not between the ages of 18 and 70, are , have extremes of body size, muscle mass, or nutritional status, or are non- or non-. According to the National Kidney Foundation, irrespective of diagnosis, the stage of the disease is based on the level of kidney function: Stage Description GFR(mL/min/1.73 m(2)) 1 Kidney damage with normal or decreased GFR 90 2 Kidney damage with mild decrease in GFR 60-89 3 Moderate decrease in GFR 30-59 4 Severe decrease in GFR 15-29 5 Kidney failure <15 (or dialysis) 22 FASTING 23 FASTING 24 Test Performed by: [place] [address] Vacuum Frame Operator: Gay Dillon, Ph.D. 25 Test Performed by: [employer] [address] [address] Vacuum Frame Operator: Gay Dillon, Ph.D. 26 RUN DATE: 10/21/12 [facility] LAB LIVE PAGE 1 RUN TIME: [address] [place] [address] Specimen Inquiry Name: SAVANNAH KO I : [address]: Hola Ledesma MD Acct: [id number] Unit: [id number] AGE: 67 Location: [facility] Re10/17/12 SEX: F Status: REG REF SPEC: [id number] AUBREE: 10/17/12- SUBM DR: Hola Ledesma MD REQ: [id number] RECD: 10/18/12-1021 STATUS: QUINN MARIE DR: Bhavna Mart MD _ ORDERED: LEVEL IV/3 FINAL DIAGNOSIS 1. Colon, right, biopsy: Hyperplastic polyp. 2. Colon, 30 cm., biopsy: Hyperplastic polyp. CLINICAL HISTORY Screening colonoscopy with history of colon polyps PRE-OPERATIVE DIAGNOSIS POST-OPERATIVE DIAGNOSIS Screening colonoscopy into cecum - prep good. Two polyps; one in right colon - removed, one in sigmoid colon - removed GROSS DESCRIPTION 1) The specimen is received in formalin labeled Savannah Ko, Colon Polyp Right Colon and consists of a polypoid, da silva mass measuring 1.1 x 0.8 x 0.4 cm. Submitted entirely in one cassette. 2) The specimen is received in formalin labeled Savannah Ko, Biopsy Polyp at 30 cm. and consists of a da silva, soft tissue fragment measuring 0.3 x 0.2 x 0.1 cm. Submitted entirely, one cassette. Signed (signature on file) Victorino Ford MD 1235 END OF REPORT * ML=Testing performed at Main Lab DEPARTMENT OF PATHOLOGY, [address] [place] [address] Victorino Ford M.D. Director [facility] Permit #[id number] 27 AA 03/01/11 28 Anion gap measurement may be of limited value in the presence of any alkalosis, especially in a combined acid base disorder. . 29 Because ethnic data is not always readily available, this report includes an eGFR for both -Americans and non- Americans. The National Kidney Disease Education Program (NKDEP) does not endorse the use of the MDRD equation for patients that are not between the ages of 18 and 70, are , have extremes of body size, muscle mass, or nutritional status, or are non- or non-. According to the National Kidney Foundation, irrespective of diagnosis, the stage of the disease is based on the level of kidney function: Stage Description GFR(mL/min/1.73 m(2)) 1 Kidney damage with normal or decreased GFR 90 2 Kidney damage with mild decrease in GFR 60-89 3 Moderate decrease in GFR 30-59 4 Severe decrease in GFR 15-29 5 Kidney failure <15 (or dialysis) 30 Imm. NE 1 31 Anion gap measurement may be of limited value in the presence of any alkalosis, especially in a combined acid base disorder. . 32 A metabolite of Naproxen, O-desmethylnaproxen, has been shown to interfere with the Jendrassik-Tomasz method for measuring total bilirubin. Samples from patients who have taken Naproxen have shown spurious elevation in total bilirubin levels. 33 Because ethnic data is not always readily available, this report includes an eGFR for both -Americans and non- Americans. The National Kidney Disease Education Program (NKDEP) does not endorse the use of the MDRD equation for patients that are not between the ages of 18 and 70, are , have extremes of body size, muscle mass, or nutritional status, or are non- or non-. According to the National Kidney Foundation, irrespective of diagnosis, the stage of the disease is based on the level of kidney function: Stage Description GFR(mL/min/1.73 m(2)) 1 Kidney damage with normal or decreased GFR 90 2 Kidney damage with mild decrease in GFR 60-89 3 Moderate decrease in GFR 30-59 4 Severe decrease in GFR 15-29 5 Kidney failure <15 (or dialysis) 34 REFERENCE RANGE: AM 8.7-22.4 PM LESS THAN 10 . 35 -- REFERENCE VALUE -- 25-HYDROXY D TOTAL (D2+D3) Optimum levels in the normal population are 25-80 Test Performed by: [facility] Dpt of Lab Med and Pathology [address] [place] [address] Vacuum Frame Operator: Aren Vega III, M.D. 36 Test Performed by: [facility] Dpt of Lab Med and Pathology [address] [place] [address] Vacuum Frame Operator: Aren Vega III, M.D. 37 Test Performed by: [employer] [place] [address] Vacuum Frame Operator: Gay Dillon, Ph.D. 38 Recent studies consider the lower limit of 32.0 ng/mL to be a threshold for optimal health. Anupam HERRON. J Nutr. 2005 May;135(2):317-22. 39 RESULT RAMBO'D 40 RESULT RAMBO'D 41 A metabolite of Naproxen, O-desmethylnaproxen, has been shown to interfere with the Jendrassik-Tomasz method for measuring total bilirubin. Samples from patients who have taken Naproxen have shown spurious elevation in total bilirubin levels. 42 PLEASE NOTE NEW REFERENCE RANGE EFFECTIVE 08. 43 Recommended INR for Patients on Oral Anticoagulants Prophylaxis 2.0 - 3.0 Treatment of thrombosis 2.0 - 3.0 Prevention of embolism 2.0 - 3.0 Prevention of embolism from prosthetic heart valves 2.5 - 3.5 44 ATTENTION EFFECTIVE 09/09/08, THE IMPLEMENTATION OF NEW COAGULATION ANLAYZERS HAS CAUSED A SIGNIFICANT DIFFERENCE FOR PROTIME RESULTS IN SECONDS. THEREFORE, DIAGNOSIS,TREATMENT,AND THERAPY MUST BE BASED ON THE INR VALUE ONLY. 45 FASTING 46 Anion gap measurement may be of limited value in the presence of any alkalosis, especially in a combined acid base disorder. . 47 Please note change in reference range effective 07 . 48 ---- RUN DATE: 10/11/07 [facility] NMI LIVE PAGE 1 RUN TIME: 1247 Specimen Inquiry RUN USER: INTERFACE -- Name: SAVANNAH KO I Status: REG REF Re10/10/07 Age/Sex: 62/F Unit#: [id number] Location: [facility] : [birth year] -- Specimen: [id number] QUINN Spec Date: 10/10/[address]: Hola lee MD Spec Type: SURGICAL P Received: 10/10/07-1407 Copies to: Darinel Navarro MD SPECIMEN 1) BIOPSY CECAL POLYP 2) BIOPSY TRANSVERSE COLON POLYP HISTORY POST-OP DIAGNOSIS: Two small polyps CLINICAL INFORMATION: History of polyps GROSS DESCRIPTION 1) The specimen is received in formalin labelled Savannah I. Argetsinger, Biopsy Cecal Polyp, and consists of a da silva, soft tissue fragment measuring 0.3 x 0.2 x 0.1 cm. Submitted entirely, one cassette. 2) The specimen is received in formalin labelled Savannah I. Argetsinger, Biopsy Transverse Colon Polyp, and consists of a da silva, soft tissue fragment measuring 0.5 x 0.3 x 0.2 cm. Submitted entirely, one cassette. DIAGNOSIS 1) Colon, cecum, biopsy: A) Tubular adenoma. B) No high grade dysplasia or malignancy. 2) Colon, transverse, biopsy: A) Tubular adenoma. B) No high grade dysplasia or malignancy. Signed Electronically by: VICTORINO FORD MD 10/11/07 1246 -- -- DEPARTMENT OF PATHOLOGY, [address] [place] [address] [facility] Permit #[id number] Victorino Ford M.D. Director of [employer] -- Procedures Date CPT Code Description Status Comment 07/26/2017 Mammogram Completed 07/24/2016 Mammogram Completed 07/23/2015 Mammogram Completed 06/05/2014 Mammogram Completed 04/14/2013 Mammogram Completed 09/28/2012 Colonoscopy Completed adenomatous polyps in 2007. hyperplastic in 2012. Repeat in 2019 or 2022. 04/02/2012 Bone Mineral Density Test Completed improved over previous in lumbar spine. Lumbar osteopenia, hips both normal. 04/06/2011 Mammogram Completed 03/27/2011 30627 Vision Test- screening test Completed of visual acuity, quantitative, bila 02/10/2010 Mammogram Completed 02/08/2009 Mammogram Completed 01/21/2008 Mammogram Completed Encounters Type Date Location Provider CPT E/M Dx Office Visit 11/02/2016 10:00a [facility] Office Bhavna Mart, 35490 Z00.00 MJade D50.8 E66.3 Office Visit 05/29/2016 3:20p Main Office Bhavna Mart M.D. 15301 Z01.818 H25.813 Z23 Office Visit 02/15/2016 9:40a [facility] Bhavna Mart M.D. 38850 F43.21 D50.8 R53.1 Z86.010 Z23 Office Visit 11/11/2015 2:40p [facility] Office Bhavna Mart M.D. 56560 F43.21 R53.1 D50.8 Office Visit 08/12/2015 11:20a [facility] Office Bhavna Mart M.D. 10020 E66.3 D50.8 Office Visit 07/22/2015 2:00p [facility] Bhavna Mart M.D. 84749 Z00.01 F43.21 E66.3 R53.1 E55.9 D50.8 Z23 Office Visit 05/28/2014 1:00p [facility] Office Bhavna Mart M.D. 15104 V70.0 V72.31 296.31 733.90 268.9 218.9 V76.12 Office Visit 04/03/2013 9:10a [facility] Office Bhavna Mart M.D. 97279 V70.0 296.31 733.90 v04.81 v03.82 Office Visit 03/14/2013 4:10p Main Office Darinel Navarro M.D. 31619 682.6 Office Visit 03/28/2012 10:00a [facility] Office Bhavna Mart M.D. 76975 V70.0 296.31 733.90 v04.81 Office Visit 10/02/2011 8:00a [facility] Office Savannah Morrison M.D. 36829 278.00 268.9 296.31 Office Visit 03/27/2011 8:00a [facility] Office Savannah Morrison M.D. 90612 V70.0 278.00 268.9 733.90 684 V72.0 Office Visit 11/28/2010 10:00a [facility] Office Savannah Morrison M.D. 44747 278.00 268.9 733.90 Office Visit 07/11/2010 1:40p [facility] Office Savannah Morrison M.D. 85711 726.19 Office Visit 07/04/2010 11:30a [facility] Office Savannah Morrison M.D. 59934 388.9 278.00 V65.49 268.9 733.90 Office Visit 08/13/2008 10:10a [facility] Som Dykes M.D. 66714 558.9 Office Visit 11/11/2007 9:30a Main Office Kavon Ayala-C 30553 682.7 Office Visit 11/06/2007 1:45p [facility] Kavon Ayala-June 35561 682.7 Office Visit 07/02/2007 1:30p [facility] Lena Masterson, Afnp-C 14683 487.8 Office Visit 05/04/2003 1:00p Main Office Darinel Navarro M.D. 33462 473.9 Office Visit 08/30/2002 10:45a Main Office Sarah Montilla, Afnp-C 44570 462 Office Visit 07/01/2002 7:00p Main Office Mak Gracia M.D. 71259 465.9 786.2 Plan of Care 11/08/2017 - Bhavna Mart M.D.Z00.00 Encntr for general adult medical exam w/o abnormal findingsComments:You are in excellent general health. I recommend regular physical exams with attention to good nutrition and exercise, eye exams every other year, and dental exams twice yearly. ~B_~U_Goals:~u_~b_2 fresh fruits daily3 helpings of fresh green and multicolored vegetablesEat from the whole color spectrum. 40-60 Oz water daily~B_~U_MOVE YOUR BODY.~u_~b_ Bodies were made to be moved. exercise 30 minutes at least 4-5 times weeklycontinue your ~B_[employer] Women [employer] Young~b_ program.E55.9 Vitamin D deficiency, unspecifiedNew Labs:Vitamin D, 25Hydroxy(Fma/LCD50.8 Other iron deficiency azrxpejB67.21 Adjustment disorder with depressed moodNew Labs:TSH ( [facility]ma/[facility])Comments:Stable. Continue present meds.Z98.84 Bariatric surgery statusNew Labs:B12 (Fma/[facility])CBC Electronic (Fma)Vitamin E SerumIron/ Tibc & Ferritin([facility])CCS-Comp Metabolic ([facility])E66.3 OverweightComments: follow up in 3 months to monitor weight loss.Follow up:3 months.AllComments:~B_~ U_Medication Management~b_~u_ Patient Understands medications she's taking? Yes No Are there Barriers to Adherence? Yes No Has the patient been asked about herbal supplements and therapies, and OTC meds? Yes No
[2017-11-29 10:20] VITALS: BP 106/66
--- NOTE | 2017-11-29 10:38 | UC ---
Ear Complaint HPI - HPI Summary HPI Summary: 72 year old female presents with 1 week history of bilateral "ears plugged". History of past cerumen impaction. + decreased hearing. Has tried OTC cerumenolytic without improvement. Denies fever, chills, ear pain, ear drainage , URI symptoms, dizziness, or vertigo. - History of Current Complaint Chief Complaint: UCEar Stated Complaint: EAR COMPLAINT Time Seen by Provider: 11/29/17 10:22 Hx Obtained From: Patient ?: No Onset/Duration: Gradual Onset Pain Intensity: 0 Aggravating Factors: Nothing Alleviating Factors: Nothing Associated Signs/Symptoms: Positive: Hearing Loss. Negative: Discharge, Trauma to Ear, URI Symptoms - Allergies/Home Medications Allergies/Adverse Reactions: Allergies Allergy/AdvReac Type Severity Reaction Status Date / Time No Known Allergies Allergy Verified 11/29/17 10:12 PMH/Surg Hx/FS Hx/Imm Hx Previously Healthy: Yes - Surgical History Surgical History: Yes Surgery Procedure, Year, and Place: Hystercectomy . LEFT K[place] [facility] [place] & 2005 REPAIR LEFT MIDDLE FINGER ULNAR DIGITAL NERVE, [facility] [place]. 2010 LAPAROSCOPIC VANIA-EN-Y GASTRIC BYPASS, [facility] [place] - Family History Known Family History: Positive: Other - non-contributary - Social History Occupation: Retired Lives: With Family Alcohol Use: None Substance Use Type: None Smoking Status (MU): Never Smoked Tobacco Review of Systems Constitutional: Negative Skin: Negative ENT: Other - ear fullness, decreased hearing Is Patient Immunocompromised?: No All Other Systems Reviewed And Are Negative: Yes Physical Exam Triage Information Reviewed: Yes Appearance: Well-Appearing, No Pain Distress, Well-Nourished Vital Signs: Initial Vital Signs Temp 97.9 F 11/29/17 10:14 Pulse 53 11/29/17 10:14 Resp 18 11/29/17 10:14 BP 106/66 11/29/17 10:14 Pulse Ox 99 11/29/17 10:14 Vital Signs Reviewed: Yes ENT: Positive: Pharynx normal, Uvula midline, Other - Bilateral cerumen impaction. TM's not visualized.. Negative: Nasal congestion, Nasal drainage Neck: Positive: Supple, Nontender, No Lymphadenopathy Respiratory: Positive: Normal breath sounds, No respiratory distress Cardiovascular: Positive: RRR, No Murmur Skin Exam: Normal Ear Complaint Course/Dx - Course Course Of Treatment: Bilateral ear irrigation performed by RN. Post-irrigation bilateral TM's intact, opaque, with good cone of light. Patient reports hearing improved. - Differential Dx/Diagnosis Provider Diagnoses: Bilateral cerumen impaction Discharge - Sign-Out/Discharge Documenting (check all that apply): Patient Departure - Discharge Plan Condition: Stable Disposition: HOME Patient Education Materials: Cerumen Impaction (ED) Referrals: Bhavna Mart MD [Primary Care Provider] - If Needed Additional Instructions: Avoid placing anything in your ear canals. If you have continued issues with build up of ear wax, try instilling 2-3 drops of mineral oil into each ear 1-2 times a week to help keep the wax soft and encourage drainage. - Billing Disposition and Condition Condition: STABLE Disposition: Home Attestation Statement User Type: Provider - I was available for consult. This patient was seen by the BYRON. The patient was not presented to, seen by, or examined by me. -Ria
== END 2017-11-29 11:13 | disposition home or self-care (01) ==
LOC: UCEAST 09:44
DX: H61.23 Impacted cerumen, bilateral (principal)
CPT/HCPCS: 99213; G0463

== ENCOUNTER 2023-06-14 09:15 | Observation (INO) ==
[2023-06-14] MEDS ORDERED: Bupivacaine-MPF SPINAL 7.5 MG/ML - 2ML AMP ONE (11:37)
[2023-06-14] MEDS ORDERED: Lidocaine 2% PF 5 ML VIAL ONE (11:38)
[2023-06-14] MEDS ORDERED: Propofol 10 MG/ML 20 ML BTL ONE (11:38)
[2023-06-14] MEDS ORDERED: KETAMINE HCL 10 MG/ML 20 ml VIAL (200 MG) ONE (11:39)
[2023-06-14] MEDS ORDERED: Tranexamic Acid 1 GM/100ML BAG 2,000 MG/200 ML BAG IV ONE (12:13)
[2023-06-14] MEDS ORDERED: ceFAZolin 2 GM PREMIX 2 GM/50 ML BAG ONE (12:13)
[2023-06-14] MEDS ORDERED: Famotidine IV 10 MG/ML 2 ml VIAL (20 mg) ONE (12:13)
[2023-06-14] MEDS: Famotidine IV 10 MG/ML 2 ml VIAL (20 mg) IV ONE (12:25)
[2023-06-14] MEDS: Lactated Ringers 1000 ml BAG 1,000 ML IV SCH ×2 (12:25→19:00)
[2023-06-14] MEDS: Buffered Lidocaine 1% SYRIN 1 ml INTRADERM ONE (12:25)
[2023-06-14 12:30] LABS: Rapid COVID-19 Molecular Undetected (Undetected)
[2023-06-14] MEDS ORDERED: Acetaminophen IV 1 GM/100ML 0 MG/0 ML BAG IV ONE (12:49)
[2023-06-14] MEDS ORDERED: ROPIVACAINE 5 MG/ML 30 ML BTL (0.5%) ONE (13:55)
[2023-06-14] MEDS ORDERED: Ondansetron 4 mg VIAL 2 MG/ML 2 ml VIAL IV PRN ×2 (14:01→16:14)
[2023-06-14] MEDS ORDERED: Naloxone 0.4 mg VIAL 0.4 mg/ml 1 ml VIAL IV PRN ×2 (14:01→17:50)
[2023-06-14] MEDS ORDERED: Rocuronium 50 mg VIAL 10 mg/ml 5 ml VIAL (50 mg) ONE (14:19)
[2023-06-14] MEDS ORDERED: fentaNYL 250 mcg/5 ml 50 MCG/ML 5 ml VIAL (250 MCG) ONE (14:19)
[2023-06-14] MEDS ORDERED: Midazolam 2 mg/2 ml VIAL 1 mg/ml 2 ml VIAL (2 mg) ONE (14:21)
[2023-06-14] MEDS ORDERED: Ondansetron 4 mg VIAL 2 MG/ML 2 ml VIAL ONE (15:13)
[2023-06-14] MEDS ORDERED: Dexamethasone IV 4 MG/ML VIAL 1 ml VIAL ONE (15:13)
[2023-06-14] MEDS ORDERED: Acetaminophen IV 1 GM/100ML 1,000 MG/100 ML BAG IV ONE (15:15)
[2023-06-14] MEDS ORDERED: HYDROmorphone 0.5 MG/0.5 ML SYRINGE ONE (15:29)
[2023-06-14] MEDS ORDERED: Glycopyrrolate IV 0.2 MG/ML 1 ML VIAL ONE (15:34)
[2023-06-14] MEDS ORDERED: Magnesium Hydroxide LIQ 30 ML UDC PO PRN (16:14)
[2023-06-14] MEDS ORDERED: Ondansetron ODT 4 mg TAB 4 MG TAB PO PRN (16:14)
[2023-06-14] MEDS ORDERED: Lactulose 30 ml UDC PO PRN (16:14)
[2023-06-14] MEDS ORDERED: fentaNYL 100 mcg/2 ml 50 MCG/ML VIAL ONE ×2 (17:06→17:48)
[2023-06-14] MEDS: fentaNYL 100 mcg/2 ml 50 MCG/ML VIAL IV PRN ×2 (17:07→17:52)
[2023-06-14] MEDS ORDERED: Morphine 2 MG/ML SYRINGE IV PRN (21:04)
[2023-06-14] MEDS: Magnesium Hydroxide LIQ 30 ML UDC PO SCH (23:08)
[2023-06-14] MEDS: ceFAZolin 1 GM ADVAN 1 GM in NS 0.9% 50 ML 50 ML IVPB SCH (23:14)
[2023-06-15 06:07] LABS: Hematocrit 31.3 % (35-45); Hemoglobin 10.3 g/dL (11.5-14.3); Mean Platelet Volume 8.4 fL (7.5-11.2); Platelet Count 212 10^3/uL (150-450)
[2023-06-15 06:25] LABS: Calcium 8.7 mg/dL (8.6-10.3); Creatinine, Serum 0.61 mg/dL (0.51-0.95); Potassium 4.5 mmol/L (3.5-5.0); eGFR CKD-EPI 92.6 (>60)
[2023-06-15] MEDS: Vitamin THERAPEUTIC TAB PO SCH (09:20)
[2023-06-15 12:02] VITALS: BP 94/49
== END 2023-06-15 14:38 | disposition home or self-care (01) ==
LOC: AA 11:46 → INTOOBSV 16:15
PROVIDERS: ADMIT Orthopaedic Surgery Adult Reconstructive Orthopaedic Surgery; ATTEND Orthopaedic Surgery Adult Reconstructive Orthopaedic Surgery